=== PATIENT | male | born 1945 | race Caucasian/White ===

== ENCOUNTER 2017-09-28 22:42 | Emergency (ER) | payer MEDICARE, BC ==
[~2017-09-28] VITALS: Ht 157.5 cm; Wt 57.2 kg
--- NOTE | 2017-09-28 23:07 | NUR ---
DR RASHAAD THOMAS MD AT BEDSIDE FOR M[facility].
[2017-09-28] MEDS ORDERED: methylPREDNISolone ACETATE 40 MG VIAL IM ONE (23:15)
--- NOTE | 2017-09-28 23:38 | NUR ---
Patient discharged to home in stable conditon. Written and verbal after care instructions given. Patient verbalizes understanding of instructions.
[2017-09-29 00:25] VITALS: BP 142/64
== END 2017-09-29 00:26 | disposition home or self-care (01) ==
LOC: ER 22:44
DX: L23.7 Allergic contact dermatitis due to plants, except food (principal); E11.9 Type 2 diabetes mellitus without complications; Z88.5 Allergy status to narcotic agent
CPT/HCPCS: A4663; J1030

== ENCOUNTER 2017-12-03 13:27 | Emergency (ER) | payer BC, MEDICARE ==
[~2017-12-03] VITALS: Ht 157.5 cm; Wt 57.2 kg
[2017-12-03] MEDS ORDERED: methylPREDNISolone ACETATE 40 MG VIAL ONE (13:59)
[2017-12-03] MEDS ORDERED: methylPREDNISolone ACETATE 40 MG VIAL IM ONE (14:00)
--- NOTE | 2017-12-03 14:06 | NUR ---
Patient discharged to home in stable conditon & steady gait. Written and verbal after care instructions given to patient. Patient verbalizes understanding of instructions.
== END 2017-12-03 14:07 | disposition home or self-care (01) ==
LOC: ER 13:29
DX: L23.7 Allergic contact dermatitis due to plants, except food (principal); E11.9 Type 2 diabetes mellitus without complications; Z88.5 Allergy status to narcotic agent
CPT/HCPCS: A4663; J1030